=== PATIENT | male | born 2005 | race Hispanic/Latino ===

== ENCOUNTER 2025-02-08 20:17 | Emergency (ER) | payer SELFPAY ==
[2025-02-08 20:18] VITALS: BP 144/86
[2025-02-08] MEDS: TYLENOL 1000 MG PO (21:34)
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
[2025-02-08 22:14] VITALS: BP 126/72
== END 2025-02-08 22:33 | disposition home or self-care (01) ==
LOC: EMR 20:17
PROVIDERS: EMERGENCY PHYSICIAN Emergency Medicine
DX: S16.1XXA Strain of muscle, fascia and tendon at neck level, initial encounter (principal); F90.9 Attention-deficit hyperactivity disorder, unspecified type; V43.12XA Car passenger injured in collision with other type car in nontraffic accident, initial encounter; Y92.410 Unspecified street and highway as the place of occurrence of the external cause
CPT/HCPCS: 99283; 72050